=== PATIENT | female | born 2000 | race African-American/Black ===

== ENCOUNTER 2024-01-25 20:16 | Emergency (ER) | payer OTHER ==
[~2024-01-25] VITALS: Ht 170.2 cm; Wt 143.0 kg
[2024-01-25 20:44] VITALS: TEMP 98.2
[2024-01-25] MEDS ORDERED: METF-1211 PO (20:51)
[2024-01-25 21:10] LABS: GLUCOMETER DEV NAME(LOC) ER.7; GLUCOSE,POINT OF CARE 352 MG/DL (70-110)
[2024-01-25] MEDS: KETOROLAC TROMETHAMINE 30 MG/ML VIAL IM ONE (23:45)
[2024-01-26] VITALS: BP 132/80; PULSE 86; RESP 16
== END 2024-01-26 00:30 | disposition home or self-care (01) ==
LOC: EMS 20:16
DX: M25.562 Pain in left knee (principal); E11.9 Type 2 diabetes mellitus without complications; F17.210 Nicotine dependence, cigarettes, uncomplicated; Z91.041 Radiographic dye allergy status; Z91.013 Allergy to seafood; Z91.040 Latex allergy status
CPT/HCPCS: 99283; 82962; 96372; J1885